=== PATIENT | male | born 1980 | race Caucasian/White ===

== ENCOUNTER 2017-11-19 09:25 | Emergency (ER) | payer MEDICAID, SELFPAY ==
[2017-11-19 09:30] VITALS: BP 124/81; PULSE 52; RESP 17; TEMP 36.4; O2SAT 94
--- NOTE | 2017-11-19 10:15 | W.ED.GENAD ---
Discharge Plan Disposition Patient Disposition: HOME Condition: Good Discharge Details Chief Complaint: Trauma Clinical Impression: Fall (on) (from) other stairs and steps, initial encounter, Contusion Primary Care Provider: Flakito Mohr ED Provider: Billy Kumari Home Meds and New Rx's Prescriptions: Continue methadone 10 MG tablet 135 mg PO DAILY RF: 0 Discharge Instructions Instructions: Contusion in Adults (ED), Fall Prevention (ED) Additional Instructions: Feel free to return to the emergency department for any new or worsening symptoms otherwise follow-up with your primary care provider as needed for discomfort and take [id number] pain medication as needed. Stand Alone Forms: Work Release Referrals: Flakito Mohr MD [Primary Care Provider] - (As needed) Medical Decision Making Patient presenting to the department for chief complaint fall at work. Patient states that he was on a piece of machinery equipment was 3ft in height when he turned around he accidentally fell off the platform. Patient states he landed on his right shoulder. he denies back pain, chest pain or difficulty breathing. Physical exam is unremarkable except some soft tissue tenderness to the right upper extremity but otherwise has full range of motion no step-off no deformity no pinpoint tenderness. Given this I feel the patient is cleared to return to work with diagnosis of contusions. Patient encouraged to take [id number] pain medication as needed for discomfort. After discussion of diagnosis and plan of care patient is no further needs, questions, or concerns and states clear understanding to return to the emergency department for any worsening symptoms. HPI General Mode of arrival: ambulatory. Date/Time Provider Initiated Documentation: 11/19/17 09:58. Limitations to Documentation: no limitations. Information obtained by: patient. History of Present Illness 37 year old M presents to the emergency department with the chief complaint of fall , described as mild, with intensity rated at 4. Quality is described as aching, and is localized to the right and upper extremity. Patient reports no radiation. Patient started experiencing this hour(s) (2) and it has been constant. No relieving factors improve symptom(s), No exacerbating factors reported . Patient notes no other symptoms.. Patient did receive the following treatments prior to arrival, none Related Data Home Medications Medication Instructions Recorded Confirmed methadone 135 mg PO DAILY 05/15/13 11/19/17 Allergies Allergy/AdvReac Type Severity Reaction Status Date / Time Anesthetics - Amide Type Allergy Severe malignant Unverified 09/10/17 15:29 hyperthermia General Stated Complaint: Trauma KOKO: 4 Review of Systems Constitutional Denies body ache(s), Denies chills and Denies fever(s) Cardiovascular Denies chest pain and Denies dyspnea Respiratory Denies dyspnea Gastrointestinal Denies abdominal pain, Denies nausea and Denies vomiting Musculoskeletal Reports as per HPI Integumentary/Breasts Denies rash Neurologic Denies confusion and Denies sensory deficit Psychiatric Denies confusion PFSH Social History Smoking/Tobacco Use Status: Current every day Exam Const General: cooperative, no acute distress and not ill appearing Orientation: alert, awake and oriented x3 HENMT Mouth: moist mucous membranes Chest Chest: normal inspection of the chest Resp Effort & Inspection: normal respiratory effort, able to speak in complete sentences and no respiratory distress Auscultation: clear to auscultation bilaterally Cardio Rate: regular rate Rhythm: regular rhythm Heart Sounds: S1 normal and S2 normal Skin General skin exam: no rashes or lesions noted Neuro General: alert, awake, oriented x3, moves all extremities and no focal motor deficits Sensory Exam: no sensory deficits noted Extrem General: normal exam except as noted Right upper extremity: shoulder/upper arm Details: tenderness Location: other (soft tissue, no bony prominence tenderness) Course Vital Signs Temperature 36.4 C L 11/19/17 09:30 Pulse 52 L 11/19/17 09:30 Respiratory Rate 17 11/19/17 09:30 Blood Pressure 124/81 11/19/17 09:30 Pulse Oximetry 94 L 11/19/17 09:30 Temperature 36.4 C L 11/19/17 09:30 Temperature Source Temporal Artery Scan 11/19/17 09:30 Pulse 52 L 11/19/17 09:30 Respiratory Rate 17 11/19/17 09:30 Respiratory Effort 11/19/17 09:34 Respiratory Depth Normal 11/19/17 09:34 Respiratory Pattern Normal 11/19/17 09:34 Blood Pressure 124/81 11/19/17 09:30 Blood Pressure Position Sitting 11/19/17 09:30 Pulse Oximetry 94 L 11/19/17 09:30 Pain Level 5 11/19/17 09:30
--- NOTE | 2017-11-19 10:21 | ED.GENADUL_ITS ---
Discharge Plan Disposition Patient Disposition: HOME Condition: Good Discharge Details Chief Complaint: Trauma Clinical Impression: Fall (on) (from) other stairs and steps, initial encounter, Contusion Primary Care Provider: Flakito Mohr ED Provider: Billy Kumari Home Meds and New Rx's Prescriptions: Continue methadone 10 MG tablet 135 mg PO DAILY RF: 0 Discharge Instructions Instructions: Contusion in Adults (ED), Fall Prevention (ED) Additional Instructions: Feel free to return to the emergency department for any new or worsening symptoms otherwise follow-up with your primary care provider as needed for discomfort and take bevh-tjz-[id number] pain medication as needed. Stand Alone Forms: Work Release Referrals: Flakito Mohr MD [Primary Care Provider] - (As needed) Medical Decision Making Patient presenting to the department for chief complaint fall at work. Patient states that he was on a piece of machinery equipment was 3ft in height when he turned around he accidentally fell off the platform. Patient states he landed on his right shoulder. he denies back pain, chest pain or difficulty breathing. Physical exam is unremarkable except some soft tissue tenderness to the right upper extremity but otherwise has full range of motion no step-off no deformity no pinpoint tenderness. Given this I feel the patient is cleared to return to work with diagnosis of contusions. Patient encouraged to take zwfm-dgr-[id number] pain medication as needed for discomfort. After discussion of diagnosis and plan of care patient is no further needs, questions, or concerns and states clear understanding to return to the emergency department for any worsening symptoms. HPI General Mode of arrival: ambulatory . Date/Time Provider Initiated Documentation: 11/19/17 09:58 . Limitations to Documentation: no limitations . Information obtained by: patient . History of Present Illness 37 year old M presents to the emergency department with the chief complaint of fall , described as mild, with intensity rated at 4. Quality is described as aching, and is localized to the right and upper extremity. Patient reports no radiation. Patient started experiencing this hour(s) (2) and it has been constant. No relieving factors improve symptom(s), No exacerbating factors reported . Patient notes no other symptoms.. Patient did receive the following treatments prior to arrival, none Related Data Home Medications Medication Instructions Recorded Confirmed methadone 135 mg PO DAILY 05/15/13 11/19/17 Allergies Allergy/AdvReac Type Severity Reaction Status Date / Time Anesthetics - Amide Type Allergy Severe malignant Unverified 09/10/17 15:29 hyperthermia General Stated Complaint: Trauma KOKO: 4 Review of Systems Constitutional Denies body ache(s), Denies chills and Denies fever(s) Cardiovascular Denies chest pain and Denies dyspnea Respiratory Denies dyspnea Gastrointestinal Denies abdominal pain, Denies nausea and Denies vomiting Musculoskeletal Reports as per HPI Integumentary/Breasts Denies rash Neurologic Denies confusion and Denies sensory deficit Psychiatric Denies confusion PFSH Social History Smoking/Tobacco Use Status: Current every day Exam Const General: cooperative, no acute distress and not ill appearing Orientation: alert, awake and oriented x3 HENMT Mouth: moist mucous membranes Chest Chest: normal inspection of the chest Resp Effort & Inspection: normal respiratory effort, able to speak in complete sentences and no respiratory distress Auscultation: clear to auscultation bilaterally Cardio Rate: regular rate Rhythm: regular rhythm Heart Sounds: S1 normal and S2 normal Skin General skin exam: no rashes or lesions noted Neuro General: alert, awake, oriented x3, moves all extremities and no focal motor deficits Sensory Exam: no sensory deficits noted Extrem General: normal exam except as noted Right upper extremity: shoulder/upper arm Details: tenderness Location: other ( soft tissue, no bony prominence tenderness) Course Vital Signs Temperature 36.4 C L 11/19/17 09:30 Pulse 52 L 11/19/17 09:30 Respiratory Rate 17 11/19/17 09:30 Blood Pressure 124/81 11/19/17 09:30 Pulse Oximetry 94 L 11/19/17 09:30 Temperature 36.4 C L 11/19/17 09:30 Temperature Source Temporal Artery Scan 11/19/17 09:30 Pulse 52 L 11/19/17 09:30 Respiratory Rate 17 11/19/17 09:30 Respiratory Effort 11/19/17 09:34 Respiratory Depth Normal 11/19/17 09:34 Respiratory Pattern Normal 11/19/17 09:34 Blood Pressure 124/81 11/19/17 09:30 Blood Pressure Position Sitting 11/19/17 09:30 Pulse Oximetry 94 L 11/19/17 09:30 Pain Level 5 11/19/17 09:30
== END 2017-11-19 10:35 | disposition home or self-care (01) ==
PROVIDERS: Emergency Provider Nurse Practitioner Family; PCP General Practice
DX: S40.011A Contusion of right shoulder, initial encounter (principal); W17.89XA Other fall from one level to another, initial encounter; Y99.0 Civilian activity done for income or pay
CPT/HCPCS: 99282

== ENCOUNTER 2018-07-25 07:56 | Outpatient (CLI) | payer MEDICAID, SELFPAY ==
[2018-07-25 08:48] LABS: Abs Immature Grans 0.01 k/cumm (0.0-0.09); Absolute Basophil Count 0.04 k/cumm (0.0-0.2); Absolute Eosinophil Count 0.16 k/cumm (0.0-0.7); Absolute Monocyte Count 0.53 k/cumm (0.11-0.7); Absolute Neutrophil Count 4.87 k/cumm (1.2-6.7); Basophils % 0.5; HCT 47.7 % (40.0-50.0); HGB 15.9 g/dL (13.5-17.5); Immature Grans % 0.1; Lymphocytes % 29.1; Mean Corp. HGB Concentration 33.3 g/dL (32.0-36.0); Mean Corpuscular Hemoglobin 32.4 pg (27.0-33.0); Mean Corpuscular Volume 97.1 fL (80-95); Mean Platelet Volume 10.2 fL (8.0-11.0); Monocytes % 6.7; Neutrophils % 61.6; Platelet Count 179 x1000/uL (130-400); RBC 4.91 m/cumm (4.50-6.00); RBC Distribution Width 12.9 % (11.8-14.1); White Blood Cell Count 7.91 k/cumm (4.4-10.8)
[2018-07-25 09:14] LABS: INR 1.1 (0.9-1.1); Prothrombin Time 10.7 sec (9.3-11.0)
[2018-07-25 09:31] LABS: ALT 114 U/L (12-78); AST 81 U/L (15-37); Albumin 3.6 g/dL (3.4-5.0); Alkaline Phosphatase 51 U/L (46-116); Anion Gap 9.9 mmol/L (3-11); BUN 15 mg/dL (7-18); Bilirubin, Total 0.5 mg/dL (0.2-1.0); CO2 30.1 mmol/L (21.0-32.0); Calcium 9.2 mg/dL (8.5-10.1); Chloride 100 mmol/L (98-107); Glucose 102 mg/dL (70-100); Potassium 4.2 mmol/L (3.5-5.1); Sodium 140 mmol/L (136-145); Total Protein 7.5 g/dL (6.4-8.2)
== END 2018-07-25 08:16 ==
PROVIDERS: PCP General Practice; Visit Provider General Practice
DX: B18.2 Chronic viral hepatitis C (principal)
CPT/HCPCS: 36415; 80053; 85025; 85610; 87522

== ENCOUNTER 2019-04-17 06:32 | Emergency (ER) | payer MEDICAID, SELFPAY ==
[2019-04-17 06:37] VITALS: BP 110/70; PULSE 60; RESP 16; TEMP 37.1; O2SAT 96
--- NOTE | 2019-04-17 06:43 | ED.GENADUL_ITS ---
Discharge Plan Disposition Patient Disposition: HOME Condition: Good Discharge Details Chief Complaint: GenMedical Clinical Impression: Viral illness Primary Care Provider: None,None ED Provider: Stephen Mera Meds and New Rx's Prescriptions: Continued methadone 10 MG tablet 135 mg PO DAILY RF: 0 Discharge Instructions Instructions: Viral Syndrome (ED) Additional Instructions: We will need to rest, drink plenty of fluids, use ibuprofen or acetaminophen for discomfort and fever. Should be better next week as viruses typically run their course over a week. Will refer to care management to help establish new primary care. Return to ED for increasing shortness of breath, mental status changes, chest pain, persistent vomiting, other concerns or problems. Stand Alone Forms: Work Release Referrals: Care Management [Provider Group] Medical Decision Making Patient with presumed viral illness. Likely not flu given lack of cough. Lungs are clear. Saturations are normal. Exam unremarkable. Treat symptomatically with fluids, rest, acetaminophen or ibuprofen. Further care management for help in establishing primary care as his previous provider retired. Return to ED for increasing shortness of breath, mental status changes, persistent vomiting, chest pain. HPI General Mode of arrival: ambulatory . Date/Time Provider Initiated Documentation: 04/17/19 06:42 . Limitations to Documentation: no limitations . Information obtained by: patient and RN notes reviewed . HPI Narrative: Patient presents to ED with complaints of generalized malaise, weakness, fatigue with associated fever and congestion. On initial day of symptoms he also had vomiting and diarrhea. The GI symptoms have resolved. Continues to feel unwell. Denies having a cough. No shortness of breath or chest pain. He tried to go to work yesterday and was not able to because he was so tired and weak. Took NyQuil last night. Presents this morning for evaluation. Related Data Home Medications Medication Instructions Recorded Confirmed methadone 135 mg PO DAILY 05/15/13 04/17/19 Allergies Allergy/AdvReac Type Severity Reaction Status Date / Time Anesthetics - Amide Type Allergy Severe malignant Unverified 04/17/19 06:43 hyperthermia General Stated Complaint: GenMedical KOKO: 4 Review of Systems Narrative: As documented in HPI otherwise negative as below. Const: fever, chills, weakness, fatigue Resp: no cough, SOB, pleuritic pain CV: no CP, diaphoresis, edema, syncope GI: vomiting/diarrhea resolved; no abdominal pain, Neuro: no headache, numbness, focal weakness, confusion [facility] Medical History (Updated 04/17/19 @ 06:56 by Stephen Mera MD) Hodgkin lymphoma (Inactive) Surgical History (Updated 04/17/19 @ 06:56 by Stephen Mera MD) History of lymph node dissection of axilla (Inactive) S/P orchiectomy (Chronic) Social History Smoking/Tobacco Use Status: Current every day Alcohol Intake: former Drug use: Current Sobriety Substance use type: opiates Do you feel safe in your relationship?: Yes Exam Narrative Exam Narrative: Vitals: Afebrile with normal vitals and room air pulse oximetry. Const: WDWN male in NAD. HEENT: NC/AT. Normal facial exam. TMs clear bilaterally. Oropharynx clear. Eyes: Normal conjunctiva and sclera. Neck: Supple. Trachea midline. No adenopathy. Lungs: Normal respiratory effort. Lungs are clear. Cor: RRR without murmur/gallop. Good radial pulses. Neuro: A+O x 3. Normal speech, mentation, gait. Cranial nerves II - XII grossly intact. No gross motor or sensory deficit. Skin: Warm and dry without rash. Course Vital Signs Vital signs: Vital Signs Temperature 98.8 F 04/17/19 06:37 Pulse 60 04/17/19 06:37 Respiratory Rate 16 04/17/19 06:37 Blood Pressure 110/70 04/17/19 06:37 Pulse Oximetry 96 04/17/19 06:37 Temperature 98.8 F 04/17/19 06:37 Temperature Source Skin 04/17/19 06:37 Pulse 60 04/17/19 06:37 Respiratory Rate 16 04/17/19 06:37 Respiratory Effort 04/17/19 06:37 Blood Pressure 110/70 04/17/19 06:37 Pulse Oximetry 96 04/17/19 06:37 Oxygen Delivery Method Room Air 04/17/19 06:37 Oxygen Flow Rate 0 04/17/19 06:37 Pain Level 0 04/17/19 06:37
[2019-04-17 07:05] VITALS: BP 110/70; PULSE 60; RESP 16; TEMP 37.1; O2SAT 96
== END 2019-04-17 07:07 | disposition home or self-care (01) ==
PROVIDERS: Emergency Provider Emergency Medicine
DX: R53.81 Other malaise (principal); R50.9 Fever, unspecified; R53.83 Other fatigue; R11.2 Nausea with vomiting, unspecified; B34.9 Viral infection, unspecified; Z02.79 Encounter for issue of other medical certificate
CPT/HCPCS: 99282; 99283

== ENCOUNTER 2019-06-18 00:29 | Outpatient (CLI) | payer MEDICAID, SELFPAY ==
--- NOTE | 2019-06-18 09:40 | DI.US_ITS ---
EXAM: US ABDOMEN CLINICAL HISTORY: HEP C, B19.20 TECHNIQUE: Ultrasound performed using standard protocol. COMPARISON: CHEST ABD PELVIS WO CONTRAST from 08/18/2016 CHEST ABD PELVIS WO CONTRAST from 08/18/2016 FINDINGS: Abdominal ultrasound was performed according to the usual protocol. There is mildly increased hepati c echogenicity which may be associated with hepatic steatosis. No focal hepatic lesion identified. No biliary dilatation. Unremarkable appearance of the gallbladder. The pancreas is not ideally visualized. There is a question of a hypoechoic lesion of the pancreatic body, measuring roughly 13 x 24 millimeters in diameter. Additional evaluation with pancreatic prot ocol MRI recommended. The kidneys are unremarkable in appearance, no hydronephrosis or nephrolithiasis. The spleen appears normal. Abdominal aorta and IVC are of normal diameter. IMPRESSION: question of pancreatic body mass, correlation with pancreas protocol MRI recommended to evaluate the possibility of neoplasm. DATA REPOSITORY:
== END 2019-06-18 00:49 ==
PROVIDERS: Visit Provider Physician Assistant
DX: B19.20 Unspecified viral hepatitis C without hepatic coma (principal); K76.0 Fatty (change of) liver, not elsewhere classified; K86.89 Other specified diseases of pancreas
CPT/HCPCS: 76700

== ENCOUNTER 2019-07-10 12:54 | Outpatient (REF) | payer MEDICAID, SELFPAY ==
[2019-07-10 13:51] LABS: Abs Immature Grans 0.01 k/cumm (0.0-0.09); Absolute Basophil Count 0.02 k/cumm (0.0-0.2); Absolute Lymphocyte Count 3.04 k/cumm (1.2-3.4); Absolute Monocyte Count 0.63 k/cumm (0.11-0.7); Absolute Neutrophil Count 3.52 k/cumm (1.2-6.7); Basophils % 0.3; HCT 47.2 % (40.0-50.0); HGB 15.8 g/dL (13.5-17.5); Immature Grans % 0.1 %; Lymphocytes % 40.4; Mean Corp. HGB Concentration 33.5 g/dL (32.0-36.0); Mean Corpuscular Volume 98.5 fL (80-95); Mean Platelet Volume 10.3 fL (8.0-11.0); Monocytes % 8.4; Neutrophils % 46.8; Platelet Count 176 x1000/uL (130-400); RBC 4.79 m/cumm (4.50-6.00); RBC Distribution Width 13.3 % (11.8-14.1); White Blood Cell Count 7.52 k/cumm (4.4-10.8)
[2019-07-10 14:12] LABS: ALT 185 U/L (16-63); AST 132 U/L (15-37); Albumin 4.1 g/dL (3.4-5.0); Alkaline Phosphatase 58 U/L (46-116); Anion Gap 7.8 mmol/L (3-11); BUN 24 mg/dL (7-18); CO2 31.2 mmol/L (21.0-32.0); CREATININE 0.84 mg/dL (0.70-1.30); Calcium 9.2 mg/dL (8.5-10.1); Calculated LDL 89 mg/dL (<100); Chloride 101 mmol/L (98-107); Cholesterol 127 mg/dL (<200); Glucose 104 mg/dL (74-106); HDL Cholesterol 28 mg/dL (40-60); Potassium 3.9 mmol/L (3.5-5.1); Sodium 140 mmol/L (136-145); Total Protein 7.8 g/dL (6.4-8.2); Triglyceride 53 mg/dL (<150)
[2019-07-13 11:37] LABS: Hepatitis B Surface Ag Negative (Negative)
[2019-07-13 11:50] LABS: Hep A Total Ab w Rflx IgM Negative (Negative); Hep B Core Antibody Negative (Negative)
[2019-07-13 12:21] LABS: HIV-1/2 Ag & Ab Screen Negative (Negative)
[2019-07-13 14:36] LABS: HCV RNA Qualitative Detected (Undetected)
[2019-07-14 09:53] LABS: ALT 160 U/L (7-55); ActiTest Grade A3; ActiTest Interpretation severe activity; ActiTest Score 0.83; Alpha-2-Macroglobulin 328 mg/dL (100 - 280); Apoliprotein A1 90 mg/dL (>=120); Bilirubin, Total 0.9 mg/dL (<=1.2); FibroTest Interpretation advanced fibrosis; FibroTest Score 0.65; FibroTest Stage F3; GGT 33 U/L (8 - 61); Haptoglobin 108 mg/dL (30 - 200)
[2019-07-15 12:41] LABS: HCV Genotype 3 (Undetected)
== END 2019-07-10 13:14 ==
LOC: NCHCN 12:54
PROVIDERS: Visit Provider Physician Assistant
DX: B19.20 Unspecified viral hepatitis C without hepatic coma (principal); C81.40 Lymphocyte-rich Hodgkin lymphoma, unspecified site; Z11.4 Encounter for screening for human immunodeficiency virus [HIV]
CPT/HCPCS: 80053; 80061; 81596; 86704; 86709; 87340; 87389; 87522; 85025; 87521

== ENCOUNTER 2019-12-24 16:43 | Outpatient (REF) | payer MEDICAID, SELFPAY ==
[2019-12-27 22:28] LABS: Patient Race White; SARS-CoV-2 RNA Undetected (Undetected); SARS-CoV-2 Specimen Source Nasal
== END 2019-12-24 17:03 ==
LOC: NCHCO 16:43
PROVIDERS: Visit Provider Nurse Practitioner Family
DX: Z11.59 Encounter for screening for other viral diseases (principal)
CPT/HCPCS: U0003

== ENCOUNTER 2020-02-16 20:29 | Outpatient (REF) | payer MEDICAID, SELFPAY ==
[2020-02-18 00:20] LABS: COVID-19 RT-PCR Result NEGATIVE (Negative)
== END 2020-02-16 20:49 ==
LOC: NCHCN 20:29
PROVIDERS: Visit Provider Physician Assistant
DX: R51.9 Headache, unspecified (principal)
CPT/HCPCS: U0003